=== PATIENT | male | born 1965 | race Caucasian/White ===

== ENCOUNTER 2025-03-17 11:01 | Emergency (ER) | payer OTHER, SELFPAY ==
[2025-03-17 11:07] VITALS: BP 106/77
--- NOTE | 2025-03-17 12:01 | ED.GENMED ---
History of Present Illness
General
Chief Complaint: Abdominal Symptoms
Source: patient
Time Seen by Provider: 03/17/25 12:01
History of Present Illness
History of Present Illness:
59-year-old male presents to the emergency room complaining of diarrhea. Patient has been experiencing diarrhea for the past 2 weeks. He describes it as a watery stool without blood or mucus. He began feeling ill 2 weeks ago when he had a fever
up to 101. Fever has gone away but he continues have diarrhea. He has some nausea but has not vomited. Patient has had 6 episodes of watery stool over the past 12 hours. He has not taken any [id number] medications. Patient denies any
recent travel. He has not been camping. He denies any recent antibiotic use. There are dogs and cats in the house but no farm animals. Patient denies any unintentional weight loss or weight gain.
Phy Exam
Physical Exam
Physical Exam:
General: Awake, Alert, Oriented X3. No acute distress.
Vitals: unremarkable
Head: Atraumatic
Eyes: Pupils equal, EOMI
Throat: Airway intact, no exudates
Neck: Trachea midline
Lungs: Clear and equal b/l
Heart: Regular rate, no murmurs
Abd: Soft, Nontender, No pulsatile mass
Neuro: Nonfocal
Skin: Warm, dry, no rash
Extremities: pulses equal b/l, no edema
Course
Orders/Labs/Results
Orders:
Orders
03/17/25 12:15
STOOL [C difficile Antigen & Toxins] Urgent
DARÍO Source: Feces/Stool
Specimen Description:
Stool Culture Urgent
DARÍO Source: Feces/Stool
Specimen Description:
Stool For WBC Urgent
DARÍO Source: Feces/Stool
Specimen Description:
03/17/25 12:16
Lactated Ringers [Lr] 1,000 ml IV BOLUS
03/17/25 12:29
Complete Blood Count/With Diff Urgent
Comprehensive Metabolic Panel Urgent
Lipase Urgent
03/17/25 12:37
Ondansetron Injectable [Zofran] 4 mg IV NOW STA
Abnormal Lab Results
03/17/25
12:29
Absolute Monos (auto) 0.8 H 10^3/uL
(0.1-0.6)
Lymphocytes % 15.4 L %
(20.5-51.1)
Monocytes % 9.4 H %
(1.7-9.3)
03/17/25 12:29
03/17/25 12:29
Vital Signs
Initial and Last Documented VS:
Initial Vital Signs
Temp Pulse Resp BP Pulse Ox
99.2 F 91 18 106/77 98
03/17/25 11:07 03/17/25 11:07 03/17/25 11:07 03/17/25 11:07 03/17/25 11:07
Last Documented Vital Signs
Temp Pulse Resp BP Pulse Ox
98.4 F 77 16 109/71 95
03/17/25 14:30 03/17/25 14:30 03/17/25 14:30 03/17/25 14:30 03/17/25 14:30
MDM/Problems Addressed
Differential Diagnosis Includes:
Viral gastroenteritis, parasitic infection which already, irritable bowel disease, inflammatory bowel disease
MDM/Problems Addressed:
Patient presents with 2 weeks of diarrhea. His abdominal exam is benign here. He does not have any blood or mucus to suggest a significant inflammatory component. Labs are unremarkable. I do not believe imaging in the form of a CT or ultrasound
would be helpful at this point particular given his benign abdominal exam. I did order stool cultures but the patient did not produce stool over the 4-hour or so. He was here. This is obviously reassuring. Patient given a slip so he could take a
stool culture to our lab if he is able to produce a specimen. Recommend Imodium if he has recurrence of significant diarrhea. Also given contact information for gastroenterology on-call and recommend he call make an appointment
*Pulse Oximetry
SaO2: 98
Oxygen Mode of Delivery: Room air
Patient hypoxic: no
*Critical Care Note
Total Time (30-74mins, 75-104mins- exclusive of procedures): Not Applicable
ED Attending Note
-
Portions of this chart may have been created with voice recognition software.� Occasional wrong word or��sound alike� substitutions may have occurred due to the inherent limitations of voice recognition software.
Discharge Plan
Departure
Patient Disposition: Home (Routine Discharge)
Date of Disposition: 03/17/25
Time of Disposition: 14:56
Patient with high blood pressure during this ER visit?: No
Condition: Good
Discharge Problem:
Diarrhea
Instructions: Acute Diarrhea
Referrals:
NONE,* [Family Provider, Internal Medicine]
Activity Restrictions/Additional Instructions:
You can take Imodium if the diarrhea returns. I have included the contact information for a GI doctor who you can call to make an appointment with.
Interventions
Interventions:
*Risk Screen - Suicide Last Done: 03/17/25 11:07
*General Assessment Last Done: 03/17/25 11:07
*Neglect/Abuse Screening Last Done: 03/17/25 11:07
Discharge Date and Time
Print Language: GABONESE
[2025-03-17] MEDS: LR 1000 IV (12:34)
[2025-03-17] MEDS: ZOFRAN 4 MG IV (12:37)
[2025-03-17 12:41] LABS: Hematocrit 44.7 % (39.0-52.0); Hemoglobin 15.0 g/dL (13.0-18.0); Mean Corp Hgb Conc. 33.6 g/dL (33.0-37.0); Mean Corpuscular Volume 89.4 fL (80.0-94.0); Nucleated Red Blood Cells % 0 % (-); Platelet Count 243 10^3/uL (130-400); Red Cell Dist. Width 12.9 % (11.5-14.5)
[2025-03-17 12:52] LABS: ALT (SGPT) 20 U/L (0-50); AST (SGOT) 25 U/L (17-59); Albumin 4.1 g/dl (3.5-5.0); Alkaline Phosphatase 47 U/L (38-126); Blood Urea Nitrogen 18 mg/dl (9-20); Calcium 9.2 mg/dl (8.4-10.2); Carbon Dioxide 24 mmol/L (22-30); Chloride 107 mmol/L (98-107); Glucose 90 mg/dl (70-99); Lipase 279 U/L (23-300); Potassium 4.3 mmol/L (3.5-5.1); Sodium 138 mmol/L (135-145); Total Protein 6.7 g/dl (6.3-8.2); eGFR > 60.00
[2025-03-17 14:30] VITALS: BP 109/71
== END 2025-03-17 15:10 | disposition home or self-care (01) ==
LOC: EMR 11:01
PROVIDERS: EMERGENCY PHYSICIAN Emergency Medicine
DX: R19.7 Diarrhea, unspecified (principal); R11.0 Nausea; Z91.013 Allergy to seafood
CPT/HCPCS: 99284; 96374; 96361; 80053; 83690; 85025